=== PATIENT | male | born 1980 | race Caucasian/White ===

== ENCOUNTER 2019-05-16 11:50 | Emergency (ER) | payer SELFPAY ==
--- OUTSIDE RECORDS SUMMARY | 2019-05-16 11:52 | XMS REPORT ---
:1980 [facility] Address [address] [place] [address] Care Team Providers Name Role Phone Unavailable Unavailable Unavailable Payers Payer Name Policy Type Policy Number Effective Date Expiration Date Problems This patient has no known problems. Allergies, Adverse Reactions, Alerts Allergy Allergy Status Severity Reaction(s) Onset Inactive Treating Comments Name Type Date Date Clinician No Known DA Active U 2014-09 Allergies -13 00:00:0 0 Medications This patient has no known medications.
[2019-05-16] MEDS ORDERED: HYDROCODONE/APAP 5/325 MG TAB ONE (12:44)
[2019-05-16] MEDS ORDERED: NA CHLORIDE 0.9% 1,000 ML ONE (12:57)
--- NOTE | 2019-05-16 13:01 | EDPHYS ---
Physician Documentation [facility] Name: Chip Harvey Age: 38 yrs Sex: Male : 1980 Arrival Date: 05/16/2019 Time: 11:53 Bed 17 Private MD: ED Physician Zacarias Redmond HPI: 05/15 12:45 This 38 yrs old Male presents to ER via Wheelchair with complaints of kb Headache, Nausea/Vomiting. 12:45 The patient or guardian reports cough, that is intermittent, described as mild, with no kb sputum, flu symptoms, low-grade fever, myalgias. Onset: The symptoms/episode began/occurred yesterday. Severity of symptoms: At their worst the symptoms were moderate, in the emergency department the symptoms are unchanged. Modifying factors: The symptoms are alleviated by nothing, the symptoms are aggravated by nothing. Associated signs and symptoms: Pertinent positives: fever, nausea, sore throat, vomiting, Pertinent negatives: chest pain, diarrhea, ear ache. The patient has not experienced similar symptoms in the past. The patient has not recently seen a physician. Historical: - Allergies: 12:03 No Known Allergies; tw2 - Home Meds: 12:03 None [Active]; tw2 - PMHx: 12:03 None; tw2 - PSHx: 12:03 None; tw2 - Immunization history:: Adult Immunizations. - Social history:: Smoking status: . ROS: 12:44 Neck: Negative for injury, pain, and swelling, Cardiovascular: Negative for chest pain, kb palpitations, and edema, Back: Negative for injury and pain, : Negative for injury, bleeding, discharge, and swelling, MS/Extremity: Negative for injury and deformity, Skin: Negative for injury, rash, and discoloration. 12:44 Constitutional: Positive for body aches, chills, fatigue, fever, malaise. 12:44 ENT: Positive for sore throat. 12:44 Respiratory: Positive for cough. 12:44 Neuro: Positive for headache, Negative for altered mental status, dizziness, gait disturbance, hearing loss, loss of consciousness, numbness, seizure activity, speech changes, syncope, near syncope, tingling, tinnitus, tremor, visual changes, weakness. Exam: 12:44 Constitutional: This is a well developed, well nourished patient who is awake, alert, kb and in no acute distress. Head/Face: Normocephalic, atraumatic. ENT: Nares patent. No nasal discharge, no septal abnormalities noted. Tympanic membranes are normal and external auditory canals are clear. Oropharynx with no redness, swelling, or masses, exudates, or evidence of obstruction, uvula midline. Mucous membranes moist. Neck: Trachea midline, no thyromegaly or masses palpated, and no cervical lymphadenopathy. Supple, full range of motion without nuchal rigidity, or vertebral point tenderness. No Meningismus. Chest/axilla: Normal chest wall appearance and motion. Nontender with no deformity. No lesions are appreciated. Cardiovascular: Regular rate and rhythm with a normal S1 and S2. No gallops, murmurs, or rubs. Normal PMI, no JVD. No pulse deficits. Respiratory: Lungs have equal breath sounds bilaterally, clear to auscultation and percussion. No rales, rhonchi or wheezes noted. No increased work of breathing, no retractions or nasal flaring. Back: No spinal tenderness. No costovertebral tenderness. Full range of motion. Skin: Warm, dry with normal turgor. Normal color with no rashes, no lesions, and no evidence of cellulitis. MS/ Extremity: Pulses equal, no cyanosis. Neurovascular intact. Full, normal range of motion. Neuro: Awake and alert, GCS 15, oriented to person, place, time, and situation. Cranial nerves II-XII grossly intact. Motor strength 5/5 in all extremities. Sensory grossly intact. Cerebellar exam normal. Normal gait. 12:44 Abdomen/GI: Inspection: abdomen appears normal, Bowel sounds: normal, in all quadrants, Palpation: soft, in all quadrants, mild abdominal tenderness, in the left lower quadrant. Vital Signs: 11:53 BP 114 / 81; Pulse 86; Resp 19; Temp 98.4(TE); Pulse Ox 100% on R/A; Weight 77.11 kg tw2 (R); Height 5 ft. 8 in. (172.72 cm); Pain 10/10; 11:53 Body Mass Index 25.85 (77.11 kg, 172.72 cm) tw2 Areli Coma Score: 12:43 Eye Response: spontaneous(4). Verbal Response: oriented(5). Motor Response: obeys kb commands(6). Total: 15. MDM: 11:55 Patient medically screened. rn 12:43 Data reviewed: vital signs, nurses notes. Data interpreted: Pulse oximetry: on room air kb is 100 %. Interpretation: normal. 12:57 ED course: Nurse informed me that pt doesn't want to stay for any more tests. Witnessed kb pt walk out of the ER doors. . 05/15 12:03 Order name: Flu; Complete Time: 12:47 kb 05/15 12:03 Order name: Strep; Complete Time: 12:38 kb 05/15 12:39 Order name: Throat Culture EDMS Administered Medications: 12:41 Drug: Kramer 5 mg-325 mg 1 tabs Route: PO; vc 13:00 Follow up: Response: No adverse reaction vc 13:04 Follow up: Response: No adverse reaction vc 13:04 CANCELLED (Patient Eloped): NS 0.9% 1000 ml IV at 1000 ml once vc Disposition: 17:00 Co-signature as Attending Physician, Zacarias Redmond MD. rn Disposition: 05/16/19 13:00 Discharged to Home. Impression: Acute upper respiratory infection, unspecified. - Condition is Stable. - Discharge Instructions: Upper Respiratory Infection, Adult, Ssyh-oi-Wibi, Viral Respiratory Infection, Pfwd-Wi-Imte. - Medication Reconciliation Form, Thank You Letter, Antibiotic Education, Prescription Opioid Use form. - Follow up: Emergency Department; When: As needed; Reason: Worsening of condition. Follow up: Private Physician; When: 2 - 3 days; Reason: Recheck today's complaints, Continuance of care, Re-evaluation by your physician. Signatures: Dispatcher [employer] EDMS Manasa Elena, CLINICAL SERVICES MANAGER-C CLINICAL SERVICES MANAGER-Ckb Zacarias Redmond MD MD rn Wise, Tara, RN RN tw2 Fely Mtz RN RN vc Corrections: (The following items were deleted from the chart) 13:03 13:00 05/16/2019 13:00 Discharged to Home. Impression: Acute upper respiratory vc infection, unspecified. Condition is Stable. Forms are Medication Reconciliation Form, Thank You Letter, Antibiotic Education, Prescription Opioid Use. Follow up: Emergency Department; When: As needed; Reason: Worsening of condition. Follow up: Private Physician; When: 2 - 3 days; Reason: Recheck today's complaints, Continuance of care, Re-evaluation by your physician. kb
--- NOTE | 2019-05-16 13:01 | ER ---
Nurse's Notes [facility] Name: Chip Harvey Age: 38 yrs Sex: Male : 1980 Arrival Date: 05/16/2019 Time: 11:53 Bed 17 Private MD: Diagnosis: Acute upper respiratory infection, unspecified Presentation: 05/15 11:53 Chief complaint: Patient states: i ache all over, i started feeling like shit tw2 yesterday, aching, and this headache is like as bad as when i had spinal fluid leaking before its that bad, i am nauseous and i vomited last night, and i am coughing and my chest feels tight. Coronavirus screen: The patient has NOT traveled to a country currently being monitored by the CDC within the last 14 days. Ebola Screen: Patient denies travel to an Ebola-affected area in the 21 days before illness onset. Initial Sepsis Screen: Does the patient meet any 2 criteria? No. Patient's initial sepsis screen is negative. Does the patient have a suspected source of infection? No. Patient's initial sepsis screen is negative. Risk Assessment: Do you want to hurt yourself or someone else? Patient reports no desire to harm self or others. 11:53 Method Of Arrival: Wheelchair tw2 11:53 Acuity: PARESH 3 tw2 12:37 Onset of symptoms was May 15, 2019 at 12:00. Triage Assessment: 11:53 Headache History: The patient has had previous headaches and this one is similar to tw2 previous episodes, and this one is more severe than previous episodes. General: Appears uncomfortable, Behavior is calm, cooperative, appropriate for age. Pain: Complains of pain in body aches and headache Pain currently is 10 out of 10 on a pain scale. Pain began 1 day ago. Also complains of nausea. Neuro: Level of Consciousness is awake, alert, obeys commands, Oriented to person, place, time, situation. Historical: - Allergies: 12:03 No Known Allergies; tw2 - Home Meds: 12:03 None [Active]; tw2 - PMHx: 12:03 None; tw2 - PSHx: 12:03 None; tw2 - Immunization history:: Adult Immunizations. - Social history:: Smoking status: . Screenin:36 Abuse screen: Denies threats or abuse. Nutritional screening: No deficits noted. vc Tuberculosis screening: No symptoms or risk factors identified. Fall Risk None identified. Assessment: 12:20 Reassessment: Patient yelling and cussing at . Patient states "it is too fucking vc cold in here this thin ass gown isn't going to cut it." Warm blanket provided. 12:34 General: Appears in no apparent distress. uncomfortable, ill, Behavior is agitated, vc anxious, inappropriate for age. Pain: Complains of pain in top of head and forehead. Neuro: Level of Consciousness is awake, alert, obeys commands, Oriented to person, place, time, situation, Appropriate for age. Cardiovascular: Capillary refill < 3 seconds Patient's skin is warm and dry. Respiratory: Airway is patent Respiratory effort is even, unlabored, Respiratory pattern is regular, symmetrical. GI: Reports nausea, vomiting. : No signs and/or symptoms were reported regarding the genitourinary system. EENT: Reports photophobia. Derm: Skin temperature is warm. Musculoskeletal: Circulation, motion, and sensation intact. Range of motion: intact in all extremities. 12:55 Reassessment: Patient states that I can not attempt an IV on the right arm, I can try vc to stick him on the left arm but I am not going to get it. 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 You can try on my left arm but you are not going to get it. Will you please call my girl and tell her to get back here now." When patients spouse returns to room patient starts yelling and cussing at her. When asked to keep it down patient becomes angry and states, "fuck this, I am out." Patient left ER before provider could come and speak to him. Vital Signs: 11:53 BP 114 / 81; Pulse 86; Resp 19; Temp 98.4(TE); Pulse Ox 100% on R/A; Weight 77.11 kg tw2 (R); Height 5 ft. 8 in. (172.72 cm); Pain 10/10; 11:53 Body Mass Index 25.85 (77.11 kg, 172.72 cm) tw2 Rulo Coma Score: 12:43 Eye Response: spontaneous(4). Verbal Response: oriented(5). Motor Response: obeys kb commands(6). Total: 15. ED Course: 11:53 Patient arrived in ED. ag5 11:55 Zacarias Redmond MD is Attending Physician. rn 11:59 Triage completed. tw2 11:59 Arm band placed on. tw2 12:00 Manasa Elena FNP-C is [facility]. kb 12:21 Fely Mtz, RN is Primary Nurse. vc 12:23 Patient has correct armband on for positive identification. Bed in low position. Call [facility] light in reach. Side rails up X 1. Adult w/ patient. Warm blanket given. Pulse ox on. NIBP on. 12:23 Flu and/or RSV swab sent to lab. Strep swab sent to lab. 5 12:24 Strep Sent. [facility] 12:24 Flu Sent. [facility] Administered Medications: 12:41 Drug: Pendroy 5 mg-325 mg 1 tabs Route: PO; vc 13:00 Follow up: Response: No adverse reaction vc 13:04 Follow up: Response: No adverse reaction vc 13:04 CANCELLED (Patient Eloped): NS 0.9% 1000 ml IV at 1000 ml once vc Outcome: 13:00 Discharge ordered by . kb 13:03 Patient left the ED. vc Signatures: Manasa Elena FNP-C FNP-Zacarias Molina MD MD rn Wise, Tara, RN RN [address] [place] [address] Yesi Wong 5 Fely Mtz RN RN vc Corrections: (The following items were deleted from the chart) 15:03 12:20 Reassessment: Patient yelling and cussing at . Patient states "it is too vc f cold in here this time ass gown isn't going to cut it." Warm blanket provided. vc 15: 12:55 Reassessment: Patient states that I can not attempt an IV on the right arm and I vc can try to stick him on the left arm but I am not going to get it. 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 Will you please call my girl and tell her to get back here now." When patients spouse returns to room patient starts yelling and cussing at her. When asked to keep it down patient becomes angry and states, "f this, I am out." Patient left ER before provider could come and speak to him. vc
[2019-05-16 13:08] VITALS: BP 114/81; TEMP 98.4; O2SAT 100
== END 2019-05-16 13:03 | disposition home or self-care (01) ==
LOC: ER 11:50
DX: J06.9 Acute upper respiratory infection, unspecified (principal)
CPT/HCPCS: 87070; 87081; 87804; 99283; J7030

== ENCOUNTER 2019-05-19 03:37 | Emergency (ER) | payer SELFPAY ==
--- OUTSIDE RECORDS SUMMARY | 2019-05-19 03:40 | XMS REPORT ---
:1980 [facility] Address [address] [place] [address] Care Team Providers Name Role Phone Unavailable [...]
[2019-05-19] MEDS ORDERED: ASPIRIN 81 MG CHEWABLE TABLET ONE (03:59)
[2019-05-19 04:19] LABS: Absolute Lymphocytes (CBC) 1.5 K/uL (0.7-4.9); Basophils % 0.3 % (0-1.3); Hematocrit 44.6 % (39.6-49.0); Lymphocytes % 37.9 % (15.3-44.8); MPV 9.3 fL (7.6-11.3); RBC Red Blood Cell Count 5.03 M/uL (4.33-5.43)
[2019-05-19 04:32] LABS: Protime INR 1.02
[2019-05-19 04:46] LABS: ALT/SGPT 60 U/L (12-78); AST/SGOT 48 U/L (15-37); Albumin 3.4 g/dL (3.4-5.0); Alkaline Phosphatase 86 U/L (45-117); BUN Blood Urea Nitrogen 14 mg/dL (7-18); Bicarbonate 28 mmol/L (21-32); Bilirubin Direct 0.1 mg/dL (0-0.2); Bilirubin Total 0.4 mg/dL (0.2-1.0); Glucose Level 95 mg/dL (74-106); Lipase 200 U/L (73-393); NT PRO-BNP 30 pg/mL (<125); Potassium 4.3 mmol/L (3.5-5.1); Protein, Total 7.2 g/dL (6.4-8.2); Sodium Level 137 mmol/L (136-145); Troponin (Emerg Dept Use Only) < 0.02 ng/mL (0.0-0.045)
[2019-05-19 05:03] LABS: Blood Morphology Comment NOT SEEN (NOT SEEN); Platelet Estimate ADEQ
--- NOTE | 2019-05-19 05:29 | ER ---
Nurse's Notes [facility] Name: Chip Harvey Age: 38 yrs Sex: Male : 1980 Arrival Date: 05/19/2019 Time: 03:38 Bed 5 Private MD: Diagnosis: Bronchitis, not specified as acute or chronic;Weakness Presentation: 05/18 03:55 Chief complaint: Patient states: pt is having pain in his left shoulder and jaw since bb Saturday. Coronavirus screen: The patient has NOT traveled to a country currently being monitored by the [facility] within the last 14 days. Proceed with normal triage procedures. Ebola Screen: No symptoms or risks identified at this time. Initial Sepsis Screen: Does the patient meet any 2 criteria? No. Patient's initial sepsis screen is negative. Does the patient have a suspected source of infection? No. Patient's initial sepsis screen is negative. Risk Assessment: Do you want to hurt yourself or someone else? Patient reports no desire to harm self or others. 03:55 Method Of Arrival: Ambulatory 03:55 Acuity: PARESH 3 bb 03:55 Onset of symptoms was May 15, 2019. bb Historical: - Allergies: 03:56 No Known Allergies; snw - Home Meds: 03:56 None [Active]; snw - PMHx: 03:56 IV drug abuse hx, only THC presently; snw - Immunization history:: Adult Immunizations up to date. - Social history:: Patient uses caffeine, THC, The patient works Smoking status: Patient reports use of chewing tobacco. Patient uses street drugs, marijuana. - Family history:: not pertinent. - Hospitalizations: : No recent hospitalization is reported. Screenin:05 Abuse screen: Denies threats or abuse. Denies injuries from another. Nutritional sg screening: No deficits noted. Tuberculosis screening: No symptoms or risk factors identified. Never had TB. Fall Risk None identified. Assessment: 04:05 General: Appears in no apparent distress. uncomfortable, well groomed, well developed, sg well nourished, Behavior is cooperative, appropriate for age. Pain: Complains of pain in anterior aspect of left upper chest, and body aches. Neuro: Level of Consciousness is awake, alert, obeys commands, Oriented to person, place, time, Supervisor Shuttle Fitting are equal bilaterally Speech is normal, Facial symmetry appears normal. Cardiovascular: Patient's skin is warm and dry. Chest pain is described as mild, diffuse, is located in left anterior chest wall. Respiratory: Airway is patent Respiratory effort is even, unlabored, Respiratory pattern is regular, symmetrical. GI: Abdomen is flat, non-distended, Reports normal bowel habits, tolerance of fluids, tolerance of food. : No signs and/or symptoms were reported regarding the genitourinary system. EENT: No signs and/or symptoms were reported regarding the EENT system. Derm: Skin is pink, warm \T\ dry. Musculoskeletal: Circulation, motion, and sensation intact. Range of motion: intact in all extremities. 04:08 Reassessment: Patient appears in no apparent distress at this time. xray at bedside at this time. 04:42 Reassessment: Patient appears in no apparent distress at this time. No changes from jd3 previously documented assessment. Patient and/or family updated on plan of care and expected duration. Pain level reassessed. Patient is alert, oriented x 3, equal unlabored respirations, skin warm/dry/pink. 05:52 Reassessment: Patient appears in no apparent distress at this time. Patient and/or jd3 family updated on plan of care and expected duration. Pain level reassessed. Patient is alert, oriented x 3, equal unlabored respirations, skin warm/dry/pink. pt reports understanding of discharge instructions, even and steady gait to vehicle with family. Vital Signs: 03:55 BP 110 / 75; Pulse 98; Resp 18 S; Temp 98.6(O); Pulse Ox 100% on R/A; Weight 77.11 kg bb (R); Height 5 ft. 8 in. (172.72 cm) (R); Pain 10/10; 04:43 BP 113 / 72; Pulse 80; Resp 17 S; Pulse Ox 99% on R/A; jd3 05:53 BP 120 / 75; Pulse 79; Resp 18 S; Pulse Ox 99% on R/A; jd3 03:55 Body Mass Index 25.85 (77.11 kg, 172.72 cm) bb ED Course: 03:38 Patient arrived in ED. cl3 03:49 Roxy Schumacher FNP-C [facility]. snw 03:49 Bronson Munoz MD is Attending Physician. snw 03:55 Arm band placed on Patient placed in an exam room, on a stretcher, on monitor worker, bb on pulse oximetry. EKG completed in triage. Results shown to MD. Family accompanied patient. 03:57 Triage completed. bb 03:59 Marcel Akins, RN is Primary Nurse. sg 03:59 Inserted saline lock: 20 gauge in left antecubital area, using aseptic technique. Blood mg2 collected. 04:04 No provider procedures requiring assistance completed. mg2 04:18 XRAY Chest (1 view) In Process Unspecified. EDMS 04:37 Db Infante, RN is Primary Nurse. jd3 04:42 Patient has correct armband on for positive identification. Bed in low position. Call jd3 light in reach. Side rails up X 1. Adult w/ patient. monitor worker on. Pulse ox on. NIBP on. 05:52 IV discontinued, intact, bleeding controlled, No redness/swelling at site. Pressure jd3 dressing applied. Administered Medications: 04:00 Drug: Aspirin Chewable Tablet 324 mg Route: PO; sg 05:00 Follow up: Response: No adverse reaction jd3 Outcome: 05:28 Discharge ordered by . tw4 05:52 Discharged to home ambulatory, with family. jd3 05:52 Condition: stable 05:52 Discharge instructions given to patient, Instructed on discharge instructions, follow up and referral plans. medication usage, Demonstrated understanding of instructions, follow-up care, medications, Prescriptions given X 3. 05:53 Patient left the ED. jd3 Signatures: Dispatcher [employer] EDPA Marcel Akins, RN RN sg Roxy Schumacher, UNDERGROUND SUPERVISOR-C UNDERGROUND SUPERVISOR-Csnw Amy Chowdary RN RN Db Moreira, RN RN jBronson Tinsley MD MD tw4 Jake Gardiner RN RN mg2 Toño Jha cl3
--- NOTE | 2019-05-19 05:29 | EDPHYS ---
Physician Documentation [facility] Name: Chip Harvey Age: 38 yrs Sex: Male : 1980 Arrival Date: 05/19/2019 Time: 03:38 Bed 5 Private MD: ED Physician Bronson Munoz HPI: 05/18 03:57 This 38 yrs old Male presents to ER via Ambulatory with complaints of Other, snw Possible Heart Attack. 03:57 The patient or guardian reports chest pain that is located primarily in the anterior snw chest wall, bilaterally. The pain does not radiate. Associated signs and symptoms: Pertinent positives: cough, dizziness, nausea. The chest pain is described as sharp, squeezing. Duration: The patient or guardian reports multiple episodes, that wax and wane. Severity of pain: At its worst the pain was moderate severe. It is unknown whether or not the patient has had similar symptoms in the past. The patient has been recently seen at the [facility] Emergency [facility], this week, for similar complaints labs were performed. Historical: - Allergies: 03:56 No Known Allergies; snw - Home Meds: 03:56 None [Active]; snw - PMHx: 03:56 IV drug abuse hx, only THC presently; snw - Immunization history:: Adult Immunizations up to date. - Social history:: Patient uses caffeine, THC, The patient works Smoking status: Patient reports use of chewing tobacco. Patient uses street drugs, marijuana. - Family history:: not pertinent. - Hospitalizations: : No recent hospitalization is reported. ROS: 03:52 ENT: Negative for injury, pain, and discharge, Neck: Negative for injury, pain, and snw swelling. 03:52 Respiratory: Negative for shortness of breath, cough, wheezing, and pleuritic chest pain, Abdomen/GI: Negative for abdominal pain, nausea, vomiting, diarrhea, and constipation, Back: Negative for injury and pain, : Negative for injury, bleeding, discharge, and swelling, MS/Extremity: Negative for injury and deformity, myalgias, fatigue 03:52 Neuro: Negative for headache, weakness, numbness, tingling, and seizure. 03:52 Constitutional: Positive for body aches, chills, fatigue, malaise, poor PO intake. 03:52 Eyes: Positive for burning . 03:52 Cardiovascular: Positive for chest pain. 03:52 Skin: Positive for diaphoresis. Exam: 03:51 Head/Face: Normocephalic, atraumatic. Eyes: Pupils equal round and reactive to light, snw extra-ocular motions intact. Lids and lashes normal. Conjunctiva and sclera are non-icteric and not injected. Cornea within normal limits. Periorbital areas with no swelling, redness, or edema. ENT: Nares patent. No nasal discharge, no septal abnormalities noted. Tympanic membranes are normal and external auditory canals are clear. Oropharynx with no redness, swelling, or masses, exudates, or evidence of obstruction, uvula midline. Mucous membranes moist. Neck: Trachea midline, no thyromegaly or masses palpated, and no cervical lymphadenopathy. Supple, full range of motion without nuchal rigidity, or vertebral point tenderness. No Meningismus. Chest/axilla: Normal chest wall appearance and motion. Nontender with no deformity. No lesions are appreciated. Cardiovascular: Regular rate and rhythm with a normal S1 and S2. No gallops, murmurs, or rubs. Normal PMI, no JVD. No pulse deficits. Respiratory: Lungs have equal breath sounds bilaterally, clear to auscultation and percussion. No rales, rhonchi or wheezes noted. No increased work of breathing, no retractions or nasal flaring. Abdomen/GI: Soft, non-tender, with normal bowel sounds. No distension or tympany. No guarding or rebound. No evidence of tenderness throughout. Back: No spinal tenderness. No costovertebral tenderness. Full range of motion. MS/ Extremity: Pulses equal, no cyanosis. Neurovascular intact. Full, normal range of motion. 03:51 Neuro: Awake and alert, GCS 15, oriented to person, place, time, and situation. Cranial nerves II-XII grossly intact. Motor strength 5/5 in all extremities. Sensory grossly intact. Cerebellar exam normal. Normal gait. 03:51 Constitutional: The patient appears awake, anxious, restless. 03:51 Skin: Appearance: Color: pink, Temperature: normal temperature, Moisture: dry. 03:51 Psych: Behavior/mood is cooperative, anxious. Vital Signs: 03:55 BP 110 / 75; Pulse 98; Resp 18 S; Temp 98.6(O); Pulse Ox 100% on R/A; Weight 77.11 kg bb (R); Height 5 ft. 8 in. (172.72 cm) (R); Pain 10; 04:43 BP 113 / 72; Pulse 80; Resp 17 S; Pulse Ox 99% on R/A; jd3 05:53 BP 120 / 75; Pulse 79; Resp 18 S; Pulse Ox 99% on R/A; jd3 03:55 Body Mass Index 25.85 (77.11 kg, 172.72 cm) bb MDM: 03:59 ECG:. [place] Risk Score: 1 - Recent [<24hrs] Severe Angina, TOTAL SCORE = 1. Data snw reviewed: vital signs, nurses notes. Data interpreted: personnel monitor: rate is 100 beats/min, rhythm is normal sinus rhythm, Pulse oximetry: on room air is 100 %. Interpretation: normal. Counseling: I had a detailed discussion with the patient and/or guardian regarding: the historical points, exam findings, and any diagnostic results supporting the discharge/admit diagnosis. 04:01 Transition of care: After a detail discussion of the patient's case, care is snw transferred to Bronson Munoz MD. 04:01 Patient medically screened. snw 05:51 HEART Score: History: Slightly Suspicious (0), ECG: Normal (0), Age:. Test 4 interpretation: by ED physician or midlevel provider: ECG, plain radiologic studies. ED course: Pt complained of left upper back pain rather than chest pain. Pt states that CP resolved upon arrival. 05/18 03:50 Order name: Basic Metabolic Panel; Complete Time: 05:23 05/18 05:23 Interpretation: Normal except: GFR 74; CA 8.2. 05/18 03:50 Order name: CBC with Diff; Complete Time: 05:23 w 05/18 05:23 Interpretation: Normal except: WBC 3.9; PLT 133; MN% 16.7. 05/18 03:50 Order name: LFT's; Complete Time: 05:23 05/18 05:24 Interpretation: Normal except: AST 48; GLOB 3.8; A/G 0.9. 05/18 03:50 Order name: Magnesium; Complete Time: 05:23 w 05/18 05:25 Interpretation: Within normal limits: MG 2.0. 05/18 03:50 Order name: NT PRO-BNP; Complete Time: 05:23 snw 05/18 05:25 Interpretation: Within normal limits: NT PRO-BNP 30. 05/18 03:50 Order name: PT-INR; Complete Time: 05:23 snw 05/18 05:25 Interpretation: Within normal limits. 05/18 03:50 Order name: Troponin (emerg Dept Use Only); Complete Time: 05:23 snw 05/18 05:25 Interpretation: Within normal limits: TROPED < 0.02. 05/18 03:50 Order name: XRAY Chest (1 view) 05/18 03:50 Order name: Lipase; Complete Time: 05:23 snw 05/18 05:26 Interpretation: Within normal limits: LIP 200. 05/18 04:19 Order name: Thyroid Stimulating Hormone; Complete Time: 05:23 EDMS 05/18 05:26 Interpretation: Within normal limits: TSH 1.840. 05/18 04:26 Order name: Manual Differential; Complete Time: 05:23 EDMS 05/18 05:24 Interpretation: Normal except: SEGS 34; BANDS [F] 4; MONO 14. 05/18 03:50 Order name: EKG; Complete Time: 03:51 snw 05/18 03:50 Order name: Cardiac monitoring; Complete Time: 04:00 snw 05/18 03:50 Order name: EKG - Nurse/Tech; Complete Time: 04:00 snw 05/18 03:50 Order name: IV Saline Lock; Complete Time: 04:00 w 05/18 03:50 Order name: Labs collected and sent; Complete Time: 04:00 snw 05/18 03:50 Order name: O2 Per Protocol; Complete Time: 04:00 snw 05/18 03:50 Order name: O2 Sat Monitoring; Complete Time: 04:00 snw EC:59 Rate is 77 beats/min. Rhythm is regular. QRS [place] is Normal. WI interval is normal. QRS snw interval is normal. QT interval is normal. No Q waves. Clinical impression: NSR w/ Non-specific ST/T Changes. Administered Medications: 04:00 Drug: Aspirin Chewable Tablet 324 mg Route: PO; sg 05:00 Follow up: Response: No adverse reaction jd3 Disposition: 07:05 Co-signature as Attending Physician, Bronson Munoz MD I agree with the assessment and tw4 plan of care. Disposition: 05/19/19 05:28 Discharged to Home. Impression: Bronchitis, not specified as acute or chronic, Weakness. - Condition is Stable. - Discharge Instructions: Acute Bronchitis, Adult, Metered Dose Inhaler with Spacer, Upper Respiratory Infection, Adult, Weakness, Cough, Adult. - Prescriptions for Tessalon Perles 100 mg Oral Capsule - take 1 capsule by ORAL route every 8 hours As needed; 15 capsule. Albuterol Sulfate 90 mcg/actuation - inhale 1-2 puff by INHALATION route every 4-6 hours; 1 Inhaler. Guaifenesin AC 10- 100 mg/5 mL Oral Liquid - take 10 milliliter by ORAL route every 4 hours As needed; 240 milliliter. - Medication Reconciliation Form, Thank You Letter, Antibiotic Education, Prescription Opioid Use form. - Follow up: Private Physician; When: Upon discharge from the Emergency Department; Reason: Recheck today's complaints, Continuance of care, Re-evaluation by your physician. - Problem is new. - Symptoms have improved. Signatures: Dispatcher [employer] [facility] Marcel Akins RN RN sg Therrien, Shelly, COMMUNITY HEALTH COORDINATOR-C COMMUNITY HEALTH COORDINATOR-Csnw Amy Chowdary RN Db West RN RN jd3 Wadley, Terrence, MD MD tw4 Corrections: (The following items were deleted from the chart) 04:18 03:59 THYROID STIMULAT HORMONE+C.LAB.BRZ ordered. [facility] EDMS 05:53 05:28 05/19/2019 05:28 Discharged to Home. Impression: Bronchitis, not specified as jd3 acute or chronic; Weakness. Condition is Stable. Forms are Medication Reconciliation Form, Thank You Letter, Antibiotic Education, Prescription Opioid Use. Follow up: Private Physician; When: Upon discharge from the Emergency Department; Reason: Recheck today's complaints, Continuance of care, Re-evaluation by your physician. Problem is new. Symptoms have improved. tw4
[2019-05-19 05:58] VITALS: TEMP 98.6
[2019-05-19 05:59] VITALS: O2SAT 99
[2019-05-19 06:01] VITALS: BP 120/75
--- NOTE | 2019-05-19 07:58 | RAD REPORT ---
EXAM DESCRIPTION: Magdalena Single View05/19/2019 4:18 am CLINICAL HISTORY: Chest pain COMPARISON: none FINDINGS: The lungs appear clear of acute infiltrate. The heart is normal size IMPRESSION: No acute abnormalities displayed
--- NOTE | 2019-05-19 12:12 | EKG ---
Test Date: 2019-05-19 Test Time: 02:49:06 Tight Rope Walker: SWG MEASUREMENT RESULTS: Intervals: Rate: 77 NE: 140 QRSD: 90 QT: 374 QTc: 423 [place]: P: 73 NE: 140 QRS: 85 T: 70 INTERPRETIVE STATEMENTS: Normal sinus rhythm Septal infarct, age undetermined Abnormal ECG No previous ECG available for comparison Electronically Signed On 05-19-19 12:11:37 CDT by João Marin
== END 2019-05-19 05:53 | disposition home or self-care (01) ==
LOC: ER 03:37
DX: J40 Bronchitis, not specified as acute or chronic (principal); R53.1 Weakness; Z72.0 Tobacco use; F12.90 Cannabis use, unspecified, uncomplicated
CPT/HCPCS: 36415; 71045; 80048; 80076; 83690; 83735; 83880; 84443; 84484; 85025; 85610; 93005; 99284